=== PATIENT | male | born 1965 | race Caucasian/White ===

== ENCOUNTER 2021-05-22 13:31 | Emergency (ER) | payer OTHER, SELFPAY ==
[2021-05-22 14:59] VITALS: BP 134/82; PULSE 77; RESP 14; TEMP 36.6; O2SAT 100
--- NOTE | 2021-05-22 16:19 | ED.BACK ---
HPI - Back Pain/Injury General Chief Complaint: Back Pain/Injury Stated Complaint: back pain Time Seen by Provider: 05/22/21 16:12 Source: patient and RN notes reviewed Mode of arrival: ambulatory Limitations: no limitations History of Present Illness HPI Narrative: Patient presents today complaining of a 4-day history of back pain has been worsening since onset. Denies radiation of the pain. Denies numbness or tingling. Denies any loss of bowel or bladder control. Denies any injury or trauma. Patient started a new route at work and believes that the extra stairs on this new review may have been contributing to his back pain. He currently rates his pain 10/21 and has been using ibuprofen, ice, and heat without relief. MD elicited complaint: back pain Related Data Home Medications Medication Instructions Recorded Confirmed albuterol sulfate [ProAir HFA] INHALATION 05/22/21 allopurinol 05/22/21 nzrrklykzi-plbhoake-injqtqiatl inh INHALATION 05/22/21 [Breztri Aerosphere] buspirone mg 05/22/21 citalopram mg 05/22/21 ezetimibe mg 05/22/21 lisinopril 05/22/21 omeprazole 05/22/21 rosuvastatin mg 05/22/21 teriparatide [Forteo] mcg SUBCUT 05/22/21 Allergies Allergy/AdvReac Type Severity Reaction Status Date / Time naproxen Allergy Mild Unknown Unverified 05/22/21 15:47 NSAIDS (Non-Steroidal Allergy Unknown Unknown Verified 05/22/21 15:47 Anti-Inflamma Penicillins Allergy Unknown Unknown Verified 05/22/21 15:47 Review of Systems Review of Systems: CONSTITUTIONAL: Denies body aches, fever, chills, or sweats. EYES: Denies visual changes, redness, or discharge. ENT: Denies rhinorrhea, congestion, sore throat, or otalgia. CARDIOVASCULAR: Denies chest pain, palpitations, or edema. RESPIRATORY: Denies cough or dyspnea. GASTROINTESTINAL: Denies abdominal pain, nausea, vomiting, or diarrhea. GENITOURINARY: Denies dysuria or hematuria. SKIN: Denies rash, itching, or wounds. MUSCULOSKELETAL: Denies joint pain, or myalgia.+ Back pain NEUROLOGIC: Denies headache, numbness, tingling, or weakness. PSYCH: Denies depression or anxiety. PMFSH Comments At time of signature, I have reviewed and agree with nursing past medical, surgical, social and family history unless otherwise noted. Please see nursing chart for further information. There is no relevant family history pertinent to the presenting complaint Exam Narrative: GENERAL: Well-appearing, well-nourished, and in no acute distress. HEAD: Normocephalic, atraumatic. EYES: EOMI. No redness or drainage. Conjunctivae normal. ENT: Mucous membranes pink and moist. NECK: Normal AROM. CHEST: No respiratory distress. MUSCULOSKELETAL: No bony tenderness of the spine. No tenderness of the bilateral lower lumbar paraspinal muscles. Patient localizes pain in the bilateral lower lumbar paraspinal muscles. Distal sensation intact. Saddle sensation intact. Capillary refill normal. Dorsiflexion and plantarflexion strong against resistance. EXTREMITIES: Normal range of motion. No edema. SKIN: Warm, dry, no rash. Capillary refill normal. Normal skin turgor. NEURO: No focal deficits. Alert and oriented x3. Gait steady. PSYCH: Normal affect. No signs of depression or anxiety. Course Course Level of Care: Express Care Visit Vital Signs Vital signs: Vital Signs Temperature 98 F 05/22/21 14:59 Pulse Rate 77 05/22/21 14:59 Respiratory Rate 14 05/22/21 14:59 Blood Pressure 134/82 05/22/21 14:59 Pulse Oximetry 100 05/22/21 14:59 Temperature 98 F 05/22/21 14:59 Pulse Rate 77 05/22/21 14:59 Respiratory Rate 14 05/22/21 14:59 Blood Pressure 134/82 05/22/21 14:59 Pulse Oximetry 100 05/22/21 14:59 Reviewed. Pt has been instructed to follow up with his PCP regarding his elevated blood pressure today. MDM - Back Pain/Injury Differential Diagnosis Differential diagnosis: Likely lumbar radiculopathy, sciatica and strain of lumbar r
== END 2021-05-22 16:30 | disposition home or self-care (01) ==
PROVIDERS: Emergency Provider Nurse Practitioner; PCP Internal Medicine
DX: S39.012A Strain of muscle, fascia and tendon of lower back, initial encounter (principal); X58.XXXA Exposure to other specified factors, initial encounter; E78.00 Pure hypercholesterolemia, unspecified; I10 Essential (primary) hypertension; K21.9 Gastro-esophageal reflux disease without esophagitis; D86.9 Sarcoidosis, unspecified; N28.9 Disorder of kidney and ureter, unspecified
CPT/HCPCS: 99203; G0463

== ENCOUNTER 2021-05-30 11:20 | Emergency (ER) | payer OTHER, SELFPAY ==
[2021-05-30 11:25] VITALS: BP 101/68; PULSE 115; RESP 20; TEMP 36.5; O2SAT 99
--- NOTE | 2021-05-30 11:49 | ED.GENADULT ---
HPI - General Adult General Chief complaint: Nausea/Vomiting/Diarrhea Stated complaint: nausea diarrhea and no energy Source: patient Mode of arrival: ambulatory Limitations: no limitations History of Present Illness HPI narrative: Patient presents for evaluation of nausea, vomiting, abdominal pain, diarrhea since 0130 this morning. Yesterday he was in his normal state of health. He states he woke from sleep with his symptoms. He has experienced hot flashes and chills but denies objective fever. He states abdominal pain is in BLQ/suprapubic region and is only present when vomiting or with bowel movements. No recent ETOH use. No hx of abdominal surgeries. He has received both doses of his [employer] COVID vaccinations and his booster. He states his girlfriend, son and daughter all recently had GI symptoms. Neither his daughter nor his son had a formal medical exam completed. His girlfriend had both a COVID and influenza test, both of which were negative. Related Data Home Medications Medication Instructions Recorded Confirmed albuterol sulfate [ProAir HFA] 2 puff INHALATION Q4-6H PRN 05/22/21 05/30/21 allopurinol 100 mg PO DAILY 05/22/21 05/30/21 ezetimibe 10 mg PO DAILY 05/22/21 05/30/21 lisinopril 10 mg PO DAILY 05/22/21 05/30/21 omeprazole 20 mg PO DAILY 05/22/21 05/30/21 rosuvastatin 20 mg PO DAILY 05/22/21 05/30/21 Allergies Allergy/AdvReac Type Severity Reaction Status Date / Time naproxen Allergy Mild Unknown Verified 05/30/21 12:04 NSAIDS (Non-Steroidal Allergy Unknown Unknown Verified 05/30/21 12:04 Anti-Inflamma Penicillins Allergy Unknown Unknown Verified 05/30/21 12:04 duloxetine AdvReac Intermediate Nausea and Verified 05/30/21 12:05 Vomiting tramadol AdvReac Intermediate Nausea and Verified 05/30/21 12:04 Vomiting Review of Systems Review of Systems: CONSTITUTIONAL: Reports hot flashes and chills. Denies objective fever EYES: Denies visual changes, redness, or discharge. ENT: Denies rhinorrhea, congestion, sore throat, or otalgia. CARDIOVASCULAR: Denies chest pain, palpitations, or edema. RESPIRATORY: Denies cough or dyspnea. GASTROINTESTINAL: Reports abdominal pain, nausea, vomiting, diarrhea. GENITOURINARY: Denies dysuria or hematuria. SKIN: Denies rash or itching. MUSCULOSKELETAL: Denies back pain, joint pain, or myalgia. NEUROLOGIC: Reports generalized weakness. Denies headache, numbness, dizziness PSYCHIATRIC: Denies anxiety or depression. [facility] Past Medical History Medical History (Updated 05/30/21 @ 12:46 by MARY HernandezP, ) Chronic kidney disease Gout Hyperlipidemia Hypertension Surgical History Surgical History No pertinent past surgical history Family History Family History Mother Heart disease Father Heart disease Social History Social History Alcohol intake: current Alcohol use details: social Substance use: never Living arrangements: alone Gender identity (if verbalized by the patient): Male Sexual Orientation (if Verbalized by the Patient): Straight or Heterosexual Spiritual care concerns: No Exam Narrative: GENERAL: Well-appearing, well-nourished, and in no acute distress. HEAD: Normocephalic, atraumatic. EYES: PERRLA and EOMI. ENT: Nares clear, no rhinorrhea or epistaxis. Mucous membranes moist. Oropharynx without tonsillar hypertrophy exudate or other lesions. Bilateral TMs pearly kyle nonbulging NECK: Supple. No adenopathy or masses. No carotid bruits or JVD CHEST: Clear to auscultation. No respiratory distress. No wheezes rales or rhonchi HEART: Rate 122. Normal rhythm. No murmur heard. Normal peripheral pulses. ABDOMEN: Soft, diffuse tenderness without rebound or guarding. Abdomen is nondistended, normal active bowel sounds. EXTREMIT
--- NOTE | 2021-05-30 12:05 | ECG_ITS ---
Measurements Intervals [place] Rate: 100 P: 58 WA: 145 QRS: 78 QRSD: 77 T: 70 QT: 335 QTc: 432 Interpretive Statements SINUS TACHYCARDIA MINIMAL Q WAVES- INFERIOR LEADS BORDERLINE ECG Electronically Signed On 05-30-2021 12:48:21 [employer] ENGINEERING TECHNICIAN by Mark Cummins D.O.
== END 2021-05-30 12:50 | disposition short-term general hospital (02) ==
PROVIDERS: Emergency Provider Nurse Practitioner; PCP Internal Medicine
DX: R10.30 Lower abdominal pain, unspecified (principal); R11.2 Nausea with vomiting, unspecified; R19.7 Diarrhea, unspecified; Z20.822 Contact with and (suspected) exposure to COVID-19; M10.9 Gout, unspecified; E78.5 Hyperlipidemia, unspecified; I12.9 Hypertensive chronic kidney disease with stage 1 through stage 4 chronic kidney disease, or unspecified chronic kidney disease; N18.9 Chronic kidney disease, unspecified
CPT/HCPCS: 87426; 87804; 93005; 99213; C9803; G0463